=== PATIENT | female | born 1975 | race Caucasian/White ===

== ENCOUNTER 2020-04-24 16:00 | Outpatient (REF) | payer MEDICARE, MEDICAID, SELFPAY | END 2020-04-24 16:01 | disposition home or self-care (01) | LOC: HO.LAB 16:00 | PROVIDERS: PCP Internal Medicine; Visit Provider Internal Medicine | DX: Z20.828 Contact with and (suspected) exposure to other viral communicable diseases (principal) | CPT/HCPCS: C9803; U0003 ==

== ENCOUNTER 2020-07-18 15:35 | Outpatient (REF) | payer MEDICARE, MEDICAID, SELFPAY ==
--- NOTE | ~2020-07-18 | MM_ITS ---
EXAMINATION: MM SCREENING DIGITAL BREAST TOMOSYNTHESIS, BILATERAL CLINICAL INFORMATION: Screening. Asymptomatic. The lifetime risk of breast cancer based on the Tyrer-Cuzick Model is 9.1%. COMPARISON: Mammography: None TECHNIQUE: Digital breast tomosynthesis is performed in both the craniocaudal and mediolateral oblique views along with computer-aided detection (CAD). Synthesized 2D images are generated from the tomosynthesis. FINDINGS: The breasts are extremely dense, which lowers the sensitivity of mammography (ACR BI-RADS breast composition Category d). There is multiplicity and bilaterality of calcifications. RIGHT BREAST: Within the medial aspect of the right breast, there is a circumscribed approximately 2.5 x 3.1 x 3.1 cm density for which further evaluation with ultrasound is recommended. LEFT BREAST: Within the medial aspect of the left breast, there is a more prominent grouping of numerous calcifications for which craniocaudal and 90 degree mediolateral spot magnification views are recommended. MM/MM tomosynthesis screening BI IMPRESSION: Bilateral breast findings for further evaluation as described. ASSESSMENT: BI-RADS 0: Incomplete - Need Additional Imaging Evaluation RECOMMENDATION: 1. Right breast ultrasound. 2. Left breast spot magnification views in craniocaudal and 90 degree mediolateral views. This patient's information was entered into a reminder system with a target due date for their next mammogram.
== END 2020-07-18 15:36 | disposition home or self-care (01) ==
LOC: HO.MAMMO 15:35
PROVIDERS: Visit Provider Internal Medicine
DX: Z12.31 Encounter for screening mammogram for malignant neoplasm of breast (principal)
CPT/HCPCS: 77063; 77067

== ENCOUNTER 2020-07-29 10:30 | Outpatient (REF) | payer MEDICARE, MEDICAID, SELFPAY ==
--- NOTE | ~2020-07-29 | MM_ITS ---
EXAMINATION: MM DIAGNOSTIC DIGITAL MAMMOGRAPHY, LEFT US DIAGNOSTIC ULTRASOUND BREAST, RIGHT CLINICAL INFORMATION: Recall from baseline exam for left breast calcifications and contralateral right circumscribed mass. TC score 9%. No family history breast cancer. COMPARISON: Mammography: 07/18/2020 TECHNIQUE: Digital mammography is performed in the following views: Magnification CC, magnification ML. Ultrasound right breast is targeted to the inner quadrant. Grayscale imaging and color Doppler are performed without and with harmonics. FINDINGS: Left Mammography: The breasts are heterogeneously dense, which may obscure small masses (ACR BI-RADS breast composition Category c). Additional magnification views left breast demonstrate numerous heterogeneous coarse calcifications anterior 9:30 o'clock position. The calcifications vary in size, some are coarse and some are punctate. They slightly vary in shape. Stereotactic sampling is recommended. Right Ultrasound: Targeted ultrasound right breast demonstrates a simple cyst 3:00 position 2 cm from nipple measuring 3.3 x 1.8 x 2.9 cm corresponding to the finding on mammography. There is increased through-transmission of sound, circumscribed olivier, no color flow. No adjacent solid mass or architectural abnormality or duct ectasia. Results are discussed with the patient and her mother at time of visit. MM/MM added views LT IMPRESSION: 1. Left: Numerous heterogeneous coarse calcifications anterior 9:30 o'clock position. 2. Right: Incidental cyst 3:00 position corresponding to finding on baseline mammography. ASSESSMENT: BI-RADS 4: Suspicious RECOMMENDATION: Stereotactic biopsy left breast calcifications.
--- NOTE | ~2020-07-29 | US_ITS ---
The targeted right breast ultrasound is included in a single combined report with the additional views contralateral left breast same day, accession number [id number]
== END 2020-07-29 10:31 | disposition home or self-care (01) ==
LOC: HO.MAMMO 10:30
PROVIDERS: PCP Internal Medicine; Visit Provider Internal Medicine
DX: R92.1 Mammographic calcification found on diagnostic imaging of breast (principal); R92.2 Inconclusive mammogram
CPT/HCPCS: 76642; 77065

== ENCOUNTER 2020-08-14 09:34 | Outpatient (REF) | payer MEDICARE, MEDICAID, SELFPAY ==
--- NOTE | ~2020-08-14 | MM_ITS ---
EXAMINATION: STEREOTACTIC VACUUM-ASSISTED BREAST BIOPSY, LEFT SPECIMEN RADIOGRAPH, LEFT POST PROCEDURE DIGITAL MAMMOGRAM, LEFT CLINICAL INFORMATION: Heterogeneous coarse calcifications anterior 9:30 o'clock left breast. COMPARISON: Mammography 07/29/2020, 07/18/2020. TECHNIQUE/PROCEDURE: Informed consent was obtained from the patient and her mother after discussion of the benefits, risks, and alternatives to biopsy today. Patient appeared to understand. Gave opportunity for questions. Mother signed consent form. BIOPSY TABLE: [employer] Affirm Prone Biopsy System. LESION: Grouped heterogeneous coarse calcifications anterior medial left breast. LOCAL ANESTHESIA: 7 mL 1% lidocaine; 10 mL 1% lidocaine with epinephrine. DERMATOTOMY: Single skin keyon dermatotomy performed. NEEDLE: [employer] Eviva 9-gauge vacuum assisted core biopsy device. APPROACH: Mediolateral. TARGETING: Stereotactic digital mammography used for targeting. CORES: 8. CLIP: [employer] SecurMark Cylinder-shaped marker. SPECIMEN RADIOGRAPH: Specimen radiograph is taken in separate room using digital mammography. There are calcifications in all cores. Calcifications vary in size, some punctate and many coarse. POST PROCEDURE UNILATERAL DIGITAL MAMMOGRAM: The post biopsy mammogram is performed in separate room using separate digital mammography equipment from the biopsy procedure. CC x2, LM views are obtained. The breasts are extremely dense, which lowers the sensitivity of mammography (breast composition category: d). The clip marker is in position. The calcifications are decreased at the biopsy site. No gross hematoma. The patient tolerated the procedure well. No immediate complications. Home instructions reviewed with the patient. Final pathology results are pending. MM/MM stereotactic biopsy LT IMPRESSION: 1. Digital tomosynthesis-guided core biopsy left breast with clip placement. 2. Specimen radiograph taken and post procedure mammogram. There is satisfactory positioning of the biopsy clip. 3. Final pathology results pending. An addendum report will be issued.
== END 2020-08-14 09:35 | disposition home or self-care (01) ==
LOC: HO.MAMMO 09:34
PROVIDERS: Visit Provider Surgery
DX: D05.12 Intraductal carcinoma in situ of left breast (principal)
CPT/HCPCS: 19081; 88305; 88341; 88342; 88360; 99202

== ENCOUNTER → 2020-08-22 15:39 | Outpatient (BNVA) | payer MEDICARE, MEDICAID, SELFPAY | PROVIDERS: PCP Internal Medicine; Visit Provider Surgery | DX: D05.12 Intraductal carcinoma in situ of left breast (principal) | CPT/HCPCS: 99212 ==

== ENCOUNTER 2020-08-29 06:50 | Day surgery (SDC) | payer MEDICARE, MEDICAID, SELFPAY ==
--- NOTE | 2020-08-28 09:35 | HO.ANESPROP2 ---
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) Abnormality of left breast on screening mammogram (Acute) Past Medical History Medical History (Updated 08/29/20 @ 08:12 by Evy Friedman) Degenerative disc disease Dysarthria Lead poisoning Family History Family History Paternal Grandfather History of lung cancer Maternal Grandfather History of lung cancer Surgical History Surgical History H/O myringotomy Social History Social History Alcohol intake: never Smoking Status: Never smoker Use of substances other than those prescribed or required for medical reasons: No Have you been hit, kicked, punched, or otherwise hurt by someone within the past year? If so, by whom?: No Advance Directives: No Advance Directives Information Provided: Yes Meds Allergies Allergy/AdvReac Type Severity Reaction Status Date / Time No Known Allergies Allergy Verified 08/29/20 07:03 N.K.D.A. Allergy Unknown NKA Uncoded 08/29/20 07:03 Exam Exam Date and Time: August 28, 2020 0935 Assessment and Plan Assessment Anesthesia Assessment: Chart Reviewed Documented by User: Evy Friedman 08/29/20 08:20 PMFSH Past Medical History Medical History (Updated 08/29/20 @ 08:12 by Evy Friedman) Degenerative disc disease Dysarthria Lead poisoning Family History Family History Paternal Grandfather History of lung cancer Maternal Grandfather History of lung cancer Family history of problems with anesthesia: No Surgical History Surgical History H/O myringotomy History of Problems with Anesthesia: No Social History Social History Alcohol intake: never Smoking Status: Never smoker Use of substances other than those prescribed or required for medical reasons: No Have you been hit, kicked, punched, or otherwise hurt by someone within the past year? If so, by whom?: No Advance Directives: No Advance Directives Information Provided: Yes Meds Allergies Allergy/AdvReac Type Severity Reaction Status Date / Time No Known Allergies Allergy Verified 08/29/20 07:03 N.K.D.A. Allergy Unknown NKA Uncoded 08/29/20 07:03 Exam Height,Weight and Vital Signs: Vital Signs Temp Pulse Resp BP Pulse Ox 08/29/20 07:14 97.9 F 78 18 119/74 99 Narrative Narrative: Patient unable to give urine for test. Denies any possibility of . Ok to proceed without. Airway Mallampati Class: III (Small mouth opening) TM Dist: >3cm Neck ROM: Full Heart: RRR Lungs: CTAB Assessment and Plan Assessment Anesthesia Assessment: Anesthesia Plan Discussed and Chart Reviewed Final Anesthetic Review NPO: Yes ASA Class: II Final Preanesthetic Review: No Changes in Pt Med Stat, Meds/Allgs Chart Reviewed, Consent Obtained/Reviewed and Anes Risks/Benef Reviewed Patient Risk: Low Procedure Risk: Low Assessment/Block/Sedation in SS: Assess/Block/Sedation-SS Anesthetic Plan Anesthetic Plan: GA Disposition: Standard PACU
[2020-08-29] VITALS (10 sets, daily range): BP systolic 111–141; BP diastolic 63–89; PULSE 78–115; RESP 16–22; TEMP 36.2–36.7; O2SAT 90–99; BMI 25.4
--- NOTE | ~2020-08-29 | MM_ITS ---
EXAMINATION: MM MAMMOGRAM GUIDED NEEDLE LOCALIZATION BREAST, LEFT MM NEEDLE LOCALIZATION SPECIMEN FROM THE LEFT BREAST CLINICAL INFORMATION: Recent diagnosis ductal carcinoma in situ medial left breast. COMPARISON: Mammography 07/18/2020, 07/29/2020, 08/14/2020. TECHNIQUE NEEDLE LOC: Proper informed consent is obtained from the patient and her mother after discussion of the procedure, potential risks and complications, and alternatives including declining the procedure today. Patient was given an opportunity for questions. The patient appeared to understand. The patient and her mother consented to the procedure. Mother signed consent form. GUIDANCE: Digital mammography. APPROACH: Mediolateral. TARGET: Biopsy clip marker and heterogeneous coarse calcifications medial left breast. Plan to bracket area with 2 localization markers. ANESTHESIA: lidocaine 1%: 8 mL (divided between 2 localization sites). LOCALIZATION MARKER: [employer], 2 needles, each 7.5 cm length. The skin is prepped and local anesthesia administered. The needles are positioned and positioning assessed with mammography. The wires are hooked into position. Tovey needle protector placed. The patient tolerated the procedure well and had no immediate complication. Procedure results called to medical surgical tech (Marcela) for Dr. Hernandez. TECHNIQUE SPECIMEN RADIOGRAPH: Imaging of the excised specimen is performed using digital mammography in 1 view. FINDINGS SPECIMEN RADIOGRAPH: The specimen shows one of the localization needles and wire to be intact and in the specimen. The other needle has been removed and the distal wire fragment and a sectioned needle overlying the specimen. The biopsy clip marker is in the specimen along with the group heterogenous coarse calcifications. There are other scattered calcifications within the specimen as well. Results were called to Dr. Hemal Hernandez in the operating room at the time of imaging. MM/MM needle loc LT IMPRESSION: 1. Status post left breast needle localization with wire hooked into position. 2. Post operative specimen radiograph obtained.
[2020-08-29] MEDS: Lactated Ringers 1,000 ML 100 ML IVCONT (07:47)
--- NOTE | 2020-08-29 08:18 | PC.NURSE ---
PATIENT IS A SPECIAL NEEDS PATIENT (mom at bedside and is the HCP). PT HAD ALREADY URINATED JUSSST BEFORE COMING INTO THE PREP AREA. PT WAS ASKED TO TRY AND GET A UIRINE SAMPLE FOR A URINE PREG TEST AND ATTEMPTED TO DO SO UNSUCCESSFULLY. DR. RASHEED SIEGEL AWARE AND SPOKE WITH PATIENT'S MOM. ORDER DISCONTINUED PER DR. Camilo SIEGEL.
--- NOTE | 2020-08-29 08:31 | PC.NURSE ---
PATIENT OFF UNIT AT THIS TIME FOR NEEDLE LOC.
--- NOTE | 2020-08-29 08:39 | MHC.SHP ---
Pre-Procedural Eval Section A The patient is an INPATIENT: No Changes since office visit: Yes Patient answered all questions; No Cold of Flu in the past 2 weeks, No New Medical Problems and No Changes in Medication The History & Physical has been completed within 30 days and I have reviewed it.: Yes Section B Chief Complaint: Ductal carcinoma in situ of left breast Allergies: Allergies Allergy/AdvReac Type Severity Reaction Status Date / Time No Known Allergies Allergy Verified 08/29/20 07:03 N.K.D.A. Allergy Unknown NKA Uncoded 08/29/20 07:03 Plan Diagnosis/Plan: Unchanged I have reviewed the history and physical and performed a pertinent physical examination on my patient. No changes have occurred unless specified.
--- NOTE | 2020-08-29 09:25 | PC.NURSE ---
PATIENT BACK IN [facility]. DR. DOWNS AT BEDSIDE OBTAINING CONSENT.
--- NOTE | 2020-08-29 09:33 | W.PM.OPN ---
Operative Note Operative Note Date of Service: 08/29/20 Narrative: Preoperative diagnosis: Ductal carcinoma in situ left breast Postoperative diagnosis: Same Procedure: Left breast lumpectomy with needle localization Surgeon: Hemal Hernandez MD Marketing Account Executive: Ana Cristina Mckeon PA-C Anesthesia: General LMA Indications for procedure: 45-year-old female patient presenting with a recent screening mammogram which revealed an area microcalcifications over wide area in the left breast felt to be suspicious for malignancy. She underwent stereotactic guided core biopsy which revealed ductal carcinoma in situ. She presents today for lumpectomy with needle localization Operative findings: Lesion in the 9 o'clock location confirmed on specimen x-ray. Specimen: Left breast lumpectomy Estimated blood loss: 20 mL Procedure details: Patient was brought to the OR and placed in a supine position. After administering general anesthesia, the left breast was prepped with ChloraPrep draped in a sterile fashion. A surgical time-out was called and the consent confirmed. Preoperative antibiotics were administered and the dye boots were in place. Local anesthesia consisting of 0.25% Sensorcaine with epinephrine was then infiltrated around the localizing needles. A radial incision was made in the 9 o'clock location adjacent to the two localizing needles and carried out through subcutaneous tissue. Superior and inferior skin flaps were then created. A core of tissue surrounding the needle was then dissected using a combination of sharp and electrocautery dissection. Every attempt was made to dissect wide of the localizing wires to assure complete removal of the specimen. The specimen was then marked with a long suture on the lateral margin, short suture on the superior margin and a loop suture in the deep margin. Specimen was sent to Radiology department for specimen x-ray followed by gross pathology. An additional margin of the anterior superior margin was obtained and sent as a separate specimen. After assuring complete removal of the specimen, the wounds were checked for hemostasis. Wounds were irrigated with saline and suctioned dry. Deep breast tissue was then reapproximated using interrupted 3-0 Polysorb sutures. Dermis was reapproximated using interrupted 3-0 Polysorb sutures. Skin was then closed using a running subcuticular 4-0 Polysorb suture. Steri-Strips 2 x 2 gauze and Tegaderm were then applied. The patient tolerated the procedure well. Sponge, instrument, and needle counts reported as correct. The patient was transferred to PACU in stable condition.
--- NOTE | 2020-08-29 11:50 | PM.OP ---
Brief Operative Note Date of Service: 08/29/20 <DINORAH Jane Last Filed: 08/29/20 11:52> Pre-op diagnosis: DCIS of left breast <DINORAH Jane Last Filed: 08/29/20 11:52> Post-op diagnosis: same <DINORAH Jane Last Filed: 08/29/20 11:52> Procedure: left breast lumpectomy with needle localization <DINORAH Jane Last Filed: 08/29/20 11:52> Surgeon: EDY DOWNS MD <DINORAH Jane Last Filed: 08/29/20 11:52> Anesthesia: GLMA <DINORAH Jane Last Filed: 08/29/20 11:52> Perforator Loader: Ana Cristina Mckeon <DINORAH Jane Last Filed: 08/29/20 11:52> Estimated blood loss (mL): 15 <DINORAH Jane Last Filed: 08/29/20 11:52> Pathology: other (LEFT breast lumpectomy; anterior/superior margin) <DINORAH Jane Last Filed: 08/29/20 11:52> Condition: stable <DINORAH Jane Last Filed: 08/29/20 11:52> Disposition: PACU <DINORAH Jane Last Filed: 08/29/20 11:52>
== END 2020-08-29 14:55 | disposition home or self-care (01) ==
PROVIDERS: PCP Internal Medicine; Visit Provider Surgery
PROC: (CPT 19301; principal; 2020-08-29 09:00)
PROC: (CPT 19301; 2020-08-29 09:00)
DX: D05.12 Intraductal carcinoma in situ of left breast (principal); Z17.0 Estrogen receptor positive status [ER+]; M51.36 Other intervertebral disc degeneration, lumbar region; R47.1 Dysarthria and anarthria; Z77.011 Contact with and (suspected) exposure to lead
CPT/HCPCS: 19301; 19281; 88307; 88329; 88341; 88342; A4648; J0690; J1100; J2250; J2405; J3010

== ENCOUNTER → 2020-09-06 10:40 | Outpatient (BNVA) | payer MEDICARE, MEDICAID, SELFPAY | PROVIDERS: PCP Internal Medicine; Visit Provider Surgery | DX: Z48.3 Aftercare following surgery for neoplasm (principal); D05.12 Intraductal carcinoma in situ of left breast | CPT/HCPCS: 99212 ==

== ENCOUNTER → 2020-10-01 11:43 | Outpatient (BNVA) | payer MEDICARE, MEDICAID, SELFPAY | PROVIDERS: PCP Internal Medicine; Visit Provider Surgery | DX: D05.12 Intraductal carcinoma in situ of left breast (principal) | CPT/HCPCS: 99212 ==

== ENCOUNTER → 2021-01-09 13:47 | Outpatient (BNVA) | payer MEDICARE, MEDICAID, SELFPAY | PROVIDERS: PCP Internal Medicine; Referring Provider Internal Medicine; Visit Provider Surgery | DX: D05.12 Intraductal carcinoma in situ of left breast (principal); Z79.810 Long term (current) use of selective estrogen receptor modulators (SERMs) | CPT/HCPCS: 99212 ==

== ENCOUNTER → 2021-02-10 14:17 | Outpatient (BNVA) | payer MEDICARE, MEDICAID, SELFPAY | PROVIDERS: PCP Internal Medicine; Referring Provider Internal Medicine; Visit Provider Advanced Practice Midwife ==

== ENCOUNTER → 2021-03-28 11:50 | Outpatient (BNVA) | payer OTHER, SELFPAY | PROVIDERS: PCP Internal Medicine; Visit Provider Internal Medicine | DX: M25.562 Pain in left knee (principal); Z91.81 History of falling | CPT/HCPCS: 73562; 99203 ==

== ENCOUNTER → 2021-03-31 11:19 | Outpatient (BNVA) | payer OTHER, SELFPAY | PROVIDERS: PCP Internal Medicine; Visit Provider Internal Medicine | DX: S80.212A Abrasion, left knee, initial encounter (principal); W18.30XA Fall on same level, unspecified, initial encounter | CPT/HCPCS: 99213 ==

== ENCOUNTER → 2021-04-08 14:28 | Outpatient (BNVA) | payer MEDICARE, MEDICAID, SELFPAY | PROVIDERS: PCP Internal Medicine; Referring Provider Internal Medicine; Visit Provider Surgery | DX: D05.12 Intraductal carcinoma in situ of left breast (principal) | CPT/HCPCS: 99212 ==

== ENCOUNTER 2021-04-23 13:28 | Outpatient (REF) | payer MEDICARE, MEDICAID, SELFPAY ==
--- NOTE | ~2021-04-23 | MM_ITS ---
EXAMINATION: MM DIAGNOSTIC DIGITAL BREAST TOMOSYNTHESIS, BILATERAL CLINICAL INFORMATION: Intraductal carcinoma in situ of left breast. COMPARISON: Mammography: August 29, 2020 and studies dating back to July 18, 2020 TECHNIQUE: Digital breast tomosynthesis is performed in both the craniocaudal and mediolateral oblique views along with computer-aided detection (CAD). Synthesized 2-D images are generated from the tomosynthesis. FINDINGS: The breasts are extremely dense, which lowers the sensitivity of mammography (ACR BI-RADS breast composition Category d). Right Breast: Numerous calcifications are seen within the right breast some of which appear to be increasing in number and, therefore, magnification views were performed. There is a grouping of increasing indeterminate calcifications about the superior and slightly medial aspect of the right breast 7 cm from the nipple, for which stereotactic core biopsy is recommended. There is also a second region of indeterminate calcifications not definitely seen on prior study just lateral to midline approximately 6 cm from the nipple, which by tomosynthesis should lie in the inferior aspect of the left breast where on mediolateral oblique tomosynthesis view, some calcifications are seen that were not definitely noted on prior study, however, magnification 90-degree film did not include that region at time of study as I am now reviewing the study after the patient has left. There are innumerable groupings and scattered calcifications present within the right breast making it difficult to separate out the differing groups, however, with the positioning of these groupings of calcifications, I feel stereotactic core biopsy could be performed targeting on these 2 groups. Left Breast: Since the previous study, the patient is status post lumpectomy. Within the postsurgical bed, some calcifications are seen, however, these appear to have been distant to the original grouping of calcifications which were removed. There is some architectural distortion related to the surgery. No new more suspicious calcifications or abnormal dominant mass is appreciated. The recommendation for stereotactic core biopsies of the right breast were discussed with the patient and her mother by me at time of study. Breast center navigator called referring provider's office with the above recommendation. MM/MM tomosynthesis diagnostic BI IMPRESSION: Increasing indeterminate calcifications within the right breast for which stereotactic core biopsy of 2 locations is recommended. ASSESSMENT: BI-RADS 4: Suspicious. RECOMMENDATION: Stereotactic core biopsy of the right breast.
== END 2021-04-23 13:29 | disposition home or self-care (01) ==
LOC: HO.MAMMO 13:28
PROVIDERS: Visit Provider Surgery
DX: D05.12 Intraductal carcinoma in situ of left breast (principal)
CPT/HCPCS: 77062; 77066

== ENCOUNTER 2021-05-06 09:09 | Outpatient (REF) | payer MEDICARE, MEDICAID, SELFPAY | END 2021-05-06 09:10 | disposition home or self-care (01) | LOC: HO.MAMMO 09:09 | PROVIDERS: Visit Provider Surgery | DX: R92.8 Other abnormal and inconclusive findings on diagnostic imaging of breast (principal) | CPT/HCPCS: 99212 ==

== ENCOUNTER 2021-05-14 10:13 | Outpatient (REF) | payer MEDICARE, MEDICAID, SELFPAY ==
--- NOTE | ~2021-05-14 | MM_ITS ---
PROCEDURE: MM STEREOTACTIC TOMOSYNTHESIS-GUIDED VACUUM-ASSISTED BREAST BIOPSY, RIGHT XR SPECIMEN, RIGHT MM POST PROCEDURE DIGITAL, RIGHT CLINICAL INFORMATION: Indeterminate calcifications deep upper inner aspect of the right breast. Previous history of left breast cancer. COMPARISON: 04/23/2021 and studies dating back to 07/18/2020. TECHNIQUE/PROCEDURE: Informed consent was obtained from the patient after discussion of the benefits, risks, and alternatives to biopsy today. Patient appeared to understand. Gave opportunity for questions. Patient signed consent form. BIOPSY TABLE: [employer] Affirm Prone Biopsy System. LESION: Indeterminate calcifications, right breast. LOCAL ANESTHESIA: 10 mL 1% lidocaine; 20 mL 1% lidocaine with epinephrine. DERMATOTOMY: Single skin keyon dermatotomy performed. NEEDLE: [employer] 9-gauge vacuum assisted core biopsy device. APPROACH: Craniocaudal. TARGETING: Combination of digital breast tomosynthesis and stereotactic digital mammography used for targeting. At initial targeting, numerous samples were obtained with first specimen radiograph only demonstrating 1 calcification within the samples. It is noted that the grouping of calcifications appear to be displaced laterally by a few millimeters from the needle placement in this patient with very dense breast parenchyma as well as some movement while giving lidocaine. The needle was then jogged laterally by a few millimeters and sampling again performed. At this time, tomosynthesis and 2-D views were obtained with re-targeting on calcifications again performed. A third group of samples were obtained in this new position approximately 1.5 cm deep to the initial samplings. CORES: 36. CLIP: [employer] T-shaped marker. SPECIMEN RADIOGRAPH: Specimen radiograph is taken in separate room using digital mammography. A few calcifications are present within the samples, however, the majority of the targeted calcifications remained within the breast. POST PROCEDURE UNILATERAL DIGITAL MAMMOGRAM: The post biopsy mammogram is performed in separate room using separate digital mammography equipment from the biopsy procedure. 2 views are obtained. The breasts are extremely dense, which lowers the sensitivity of mammography (breast composition category: d). The clip marker appears. The patient tolerated the procedure well. No immediate complications. Home instructions reviewed with the patient and her mother. Final pathology results are pending. MM/MM stereotactic biopsy RT IMPRESSION: 1. Digital tomosynthesis-guided core biopsy right breast with clip placement. 2. Specimen radiograph taken and post procedure mammogram. The clip is noted to lie approximately 1.5 cm deep to the targeted grouping of calcifications. However, the needle had been positioned approximately 1.5 cm deep to the calcifications during the study on the third round of biopsy samples. I cannot be sure that there was adequate sampling of the targeted location. If pathology results demonstrate benign tissue, I would recommend repeat sampling of the calcifications which stereotactic guidance. If the pathology of the specimen demonstrates atypia or malignancy, then surgery could be performed at that time. The above was discussed with Dr. Hernandez, the patient, and the patient's mother. 3. Final pathology results pending. An addendum report will be issued.
[2021-05-14] MEDS: Sodium Bicarbonate 8.4% 50 MEQ/50 ML VIAL SUBCUT (12:34)
== END 2021-05-14 10:14 | disposition home or self-care (01) ==
LOC: HO.MAMMO 10:13
PROVIDERS: Visit Provider Surgery
DX: R92.8 Other abnormal and inconclusive findings on diagnostic imaging of breast (principal)
CPT/HCPCS: 19081; 88305; 88341; 88342; A4648

== ENCOUNTER → 2021-05-20 13:49 | Outpatient (BNVA) | payer MEDICARE, MEDICAID, SELFPAY | PROVIDERS: PCP Internal Medicine; Referring Provider Internal Medicine; Visit Provider Surgery | DX: N60.91 Unspecified benign mammary dysplasia of right breast (principal); D05.12 Intraductal carcinoma in situ of left breast | CPT/HCPCS: 99212 ==

== ENCOUNTER 2021-10-01 14:00 | Outpatient (RCR) | payer MEDICARE, MEDICAID, SELFPAY ==
--- NOTE | 2021-09-11 16:11 | MHC.PT.EP ---
[facility] [place] Office [place] Office [place] Office [address] Hernandez [place] [address] [phone] F: [phone] F: [phone] F: [phone] F: [phone] Physical Therapy Plan of Care Date of Evaluation: Date of Surgery: Diagnosis: Dorsalgia Assessment: Pt is a pleasant 46yo F who presents to PT with mid back pain. She has had recent injections with some relief. She presents to PT today with current impairments in pain, decreased thoracic and lumbar ROM, soft tissue restrictions, and impaired posture. She is TTP throughout thoracic spine and R thoracic and lumbar PS. She is limited functionally by prolonged sitting, prolonged standing, walking, and sleeping. She is a good candidate for skilled PT in order to address current impairments in order to faciltiate return to PLOF. She will be seen for PT 2x/week for 4 weeks and will be reassessed at that time. Frequency and Duration: The patient will be seen 2x/week for 4 weeks Short Term Goals: Pt will perform HEP regularly with assist as needed to promote self management of symptoms Pt will demonstrate improvements in postural awareness and body mechanics Deliverer Food Goals: Pt will tolerate standing > 1 hour with minimal to no pain in her back to assist with standing functional tasks Pt will tolerate sitting > 30 min with minimal to no pain Pt will demonstrate improvements in function as evidenced by statistically significant improvement in Modified Oswestry Low Back Pain Disability Questionnaire Treatment Plan: Modalities to reduce pain, spasms and effusion. Manual therapy to restore motion and function. Therapeutic exercise to improve strength and flexibility. Neuromuscular re-education for posture and balance. Therapeutic activities to return to functional activities of daily living. Electronically signed by: Michelle Dietz PT, DPT Please sign and return to therapist. Thank you for your referral.
--- NOTE | 2021-10-14 11:21 | MHC.PT.DC ---
[facility] [place] Office [place] Office [place] Office [address] Hernandez Vallecillo [address] [phone] F: [phone] F: [phone] F: [phone] F: [phone] Physical Therapy Discharge Report Diagnosis: Dorsalgia Date of Surgery: Date of Evaluation: 09/11/21 Date of Discharge: 10/14/21 Treatments to Date: 4 Cancellations to Date: 1 No Shows to Date: 0 Discharge Status: Patient Elected to Stop Discharge Summary: Pt was seen for PT from 09/01/21-09/24/21. Her last attended appointment was 09/24/21. Per her last PT treatment note on 09/24/21, pt reported improvement in symptoms with stretches performed during session. Pts mother called on 10/03/21 to D/C pt from PT per reports of increased pain. Pt is being D/C from PT at this time. Pt current level of function unknown. Electronically signed by: Michelle Dietz, PT, DPT Please sign and return to therapist. Thank you for your referral.
== END 2021-10-14 11:22 | disposition home or self-care (01) ==
LOC: HO.PT 14:00
PROVIDERS: PCP Internal Medicine; Visit Provider Internal Medicine
DX: M54.9 Dorsalgia, unspecified (principal)
CPT/HCPCS: 97110; 97162

== ENCOUNTER 2021-10-02 10:26 | Outpatient (REF) | payer MEDICARE, MEDICAID, SELFPAY ==
[2021-10-02 11:15] LABS: MANUAL DIFF FLAG NO
[2021-10-02 11:26] LABS: Basophils Percent Auto 0.6 % (0-2); Eosinophils Absolute Auto 0.2 X10*3/uL (0.0-0.4); Eosinophils Percent Auto 2.5 % (0-4); Hematocrit 41.4 % (37.0-47.0); Hemoglobin 13.4 g/dl (12.0-16.0); Imm Gran Abs Auto 0.02 X10*3/uL (0.00-0.03); Imm Gran Pct Auto 0.3 % (0.0-0.4); Lymphocytes Absolute Auto 2.4 X10*3/uL (1.2-4.9); Lymphocytes Percent Auto 36.3 % (20-40); Mean Corpuscular HGB Conc 32.4 g/dl (31.0-35.0); Mean Corpuscular Hemoglobin 28.2 pg (27.0-33.0); Mean Platelet Volume 11.1 fL (9.4-12.3); Monocytes Absolute Auto 0.4 X10*3/uL (0.1-1.2); Monocytes Percent Auto 6.1 % (2-11); Neutrophils Absolute Auto 3.5 x10*3/uL (2.0-8.3); Neutrophils Percent Auto 54.2 % (45-73); Platelet Count 287 X10*3/uL (160-400); Red Blood Count 4.76 X10*6/uL (4.20-5.50); Red Cell Distribution Width 13.1 % (11.0-16.0); White Blood Count 6.5 X10*3/uL (4.8-10.8)
[2021-10-02 12:09] LABS: Alanine Aminotransferase 12 U/L (0-31); Alkaline Phosphatase 60 U/L (39-117); Anion Gap 12 (12-20); Aspartate Amino Transferase 18 U/L (5-31); Bilirubin Total 0.8 mg/dL (0.0-1.0); Blood Urea Nitrogen 16 mg/dL (9-16); Carbon Dioxide 27 mmol/L (22-29); Cholesterol 185 mg/dL; Estimated Glomerular Filt Rate > 60; HDL Cholesterol 44 mg/dL
[2021-10-02 12:16] LABS: TSH reflex Free T4 2.18 uIU/mL (0.32-4.0)
[2021-10-02 12:41] LABS: Albumin Level 4.3 g/dL (3.5-5.0); Calcium 9.4 mg/dL (8.4-10.2); Chloride 105 mmol/L (96-108); Glucose Fasting 86 mg/dL (60-99); LDL Cholesterol Calculated 119 mg/dl; Potassium 4.8 mmol/L (3.3-5.1); Sodium 139 mmol/L (135-145); Total Protein 7.8 g/dL (6.5-8.0); Triglycerides 112 mg/dL
== END 2021-10-02 10:27 | disposition home or self-care (01) ==
LOC: HO.HMGCLDS 10:26
PROVIDERS: Visit Provider Internal Medicine
DX: Z00.01 Encounter for general adult medical examination with abnormal findings (principal); F79 Unspecified intellectual disabilities; Z85.3 Personal history of malignant neoplasm of breast
CPT/HCPCS: 36415; 80053; 80061; 84443; 85025

== ENCOUNTER 2022-07-08 15:47 | Outpatient (REF) | payer MEDICARE, MEDICAID, SELFPAY ==
--- NOTE | ~2022-07-08 | XR_ITS ---
EXAMINATION: XR TOES, RIGHT CLINICAL INFORMATION: Pain COMPARISON: None TECHNIQUE: 3 views of the right toes were obtained. FINDINGS: Somewhat flexed positioning of the fourth digit limits evaluation. No definite fractures are seen. Alignment is grossly maintained. The soft tissues are unremarkable. No definite osseous erosion. XR/XR toe RT min 2V IMPRESSION: Somewhat flexed positioning of the fourth digit limits evaluation. No definite fracture or malalignment. No osseous erosion.
== END 2022-07-08 15:48 | disposition home or self-care (01) ==
LOC: HO.HMGCX 15:47
PROVIDERS: PCP Internal Medicine; Visit Provider Internal Medicine
DX: M79.674 Pain in right toe(s) (principal)
CPT/HCPCS: 73660

== ENCOUNTER 2023-04-12 08:29 | Outpatient (AMB) | payer MEDICARE, MEDICAID, SELFPAY ==
[2023-04-12 09:09] VITALS: BP 120/82; PULSE 113; TEMP 36.7; O2SAT 97; BMI 23.5
--- NOTE | 2023-04-12 09:09 | AM.OFFWIN_ITS ---
Intake Vital Signs 04/12/23 09:09 Height 6 ft Weight 173 lb 2 oz BMI 23.5 BP 120/82 Blood Pressure Location Lt brachial Position Sitting Pulse 113 H Pulse Source Pulse Oximeter Temp 98.0 F Temp Source Oral Pulse Oximetry (%) 97 Oxygen Delivery Method Room Air Intake Visit Reasons: EP, sore throayt, cough (masked) Intake Note: Pt presents to the office today for c/o sore throat, cough, and congestion.Pts mother states she had lymph node surgery 6 weeks ago in her right arm as well. Patient Tobacco Use Status: Never used Tobacco Accompanied by: Mother Allergies N.K.D.A. Allergy (Unknown, Uncoded 04/12/23 09:13) NKA Medication List - Last Reconciled 04/12/23 by Karan Aldrich MD ascorbic acid (vitamin C) ER 1 cap PO DAILY ibuprofen 200 mg (10 mL) PO .3 times daily PRN multivitamin 1 tab PO DAILY HPI EP, sore throayt, cough (masked) HPI Details 47-year-old female presents to the offic e for a sick visit. She is accompanied on this visit with her mother. Mom is speaking on behalf of the patient due to her learning disabilities. He reports symptoms of cough, sore throat, nausea and vomiting. [facility] Medical History Ductal carcinoma in situ of left breast Degenerative disc disease Lead poisoning Dysarthria Surgical History History of lumpectomy of left breast H/O myringotomy Family History Paternal Grandfather History of lung cancer Maternal Grandfather History of lung cancer Maternal Uncle Heart attack Maternal Grandmother Heart attack Diabetes HTN (hypertension) Father COPD (chronic obstructive pulmonary disease) Parkinson disease Maternal Aunt Diabetes Paternal Grandmother Diabetes Paternal Aunt Diabetes Social History Household Members: Family Household Members Other:: mother Housing: House Are you a primary critical care transport nurse to a significant other at home: No Do you presently have visiting nurse or other home services: No Alcohol intake: never Patient Tobacco Use Status: Never used Tobacco e-Cigarette/Vaping Use: Never Used service: No Current occupational status: employed 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 Cognitive needs: Yes Hearing needs: No Vision needs: No Physical Exam Vital Signs: Last Vital Signs Temp 98.0 F 04/12/23 09:09 Pulse 113 H 04/12/23 09:09 BP 120/82 04/12/23 09:09 Pulse Ox 97 04/12/23 09:09 Oxygen Delivery Method Room Air 04/12/23 09:09 BMI result Body Mass Index 23.5 Const General: cooperative and healthy appearing Nutritional Appearance: well nourished Orientation/consciousness: patient oriented x3 Limitations: no limitations HEENT Head: Yes normal to inspection Eyes General: appearance normal, both eyes and all related structures Neck Neck: Yes normal visual inspection Chest Chest palpation & inspection: normal palpation of entire chest wall Resp Effort & Inspection: normal respiratory effort Neuro General: patient oriented x3 Results AMB Rapid Strep AMB Rapid Strep Negative Last Edit by Jordana Gaming MA on 04/12/23 09:28 Results Reviewed Results Reviewed: Laboratory Last Values Strep Scn Rapid Clinic Negative 04/12/23 09:27 Assessment & Plan Assessment & Plan (1) Upper respiratory tract infection: Code(s): J06.9 - Acute upper respiratory infection, unspecified Plan: Antibiotics ordered. Increase fluid intake. Tylenol for aches and pains. If symptoms worsen, follow-up here for a recheck. Orders: Orders AMB Rapid Strep Screen Today Z13.9 - Encounter for screening, unspecified Coding Level of Care Code Est Pt Level 3 (44062) Diagnoses Upper respiratory tract infection J06.9
== END 2023-04-12 10:12 | disposition home or self-care (01) ==
PROVIDERS: PCP Internal Medicine; Visit Provider Internal Medicine
DX: J06.9 Acute upper respiratory infection, unspecified (principal); Z13.9 Encounter for screening, unspecified
CPT/HCPCS: 87880; 99213

== ENCOUNTER 2023-09-27 15:11 | Outpatient (AMB) | payer MEDICARE, MEDICAID, SELFPAY ==
[2023-09-27 15:17] VITALS: BP 120/78; PULSE 102; TEMP 36.6; O2SAT 97
--- NOTE | 2023-09-27 15:17 | AM.OFFWIN_ITS ---
Intake Vital Signs 09/27/23 15:17 Height 6 ft BP 120/78 Blood Pressure Location Lt brachial Position Sitting Pulse 102 H Pulse Source Pulse Oximeter Temp 97.8 F Temp Source Oral Pulse Oximetry (%) 97 Oxygen Delivery Method Room Air Intake Visit Reasons: EP nose bleeds ENT Intake Note: pt is here for c/o nose bleed ongoing a few weeks, on and off. patient states she just has double mastectomy due to breast cancer Patient Tobacco Use Status: Never used Tobacco Allergies No Known Allergies Allergy (Verified 09/27/23 15:18) Do you need a note to return to daycare/school/sports/work: Yes HPI HPI Comments History of Present Illness Details 48 y/o female patient who presents to [facility] in clinic with c/o nose bleeds. Reports symptoms on/off for the past 3 weeks. Pt has intellectual disability , today accompanied by mother who provide History. S/P Breast Cancer, currently taking Anastrozole drug for Chemo.She started the drug back in 03/2023. She is being managed by [facility]. [facility], [facility] Medical History Ductal carcinoma in situ of left breast Degenerative disc disease Lead poisoning Dysarthria Surgical History History of lumpectomy of left breast H/O myringotomy Family History Paternal Grandfather History of lung cancer Maternal Grandfather History of lung cancer Maternal Uncle Heart attack Maternal Grandmother Heart attack Diabetes HTN (hypertension) Father COPD (chronic obstructive pulmonary disease) Parkinson disease Maternal Aunt Diabetes Paternal Grandmother Diabetes Paternal Aunt Diabetes Social History Household Members: Family Household Members Other:: mother Housing: House Are you a primary customer care assistant to a significant other at home: No Do you presently have visiting nurse or other home services: No Alcohol intake: never Patient Tobacco Use Status: Never used Tobacco e-Cigarette/Vaping Use: Never Used service: No Current occupational status: employed 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 Cognitive needs: Yes Hearing needs: No Vision needs: No Review of Systems Const All systems reviewed & are unremarkable except as noted in HPI and below Physical Exam Vital Signs: Last Vital Signs Temp 97.8 F 09/27/23 15:17 Pulse 102 H 09/27/23 15:17 BP 120/78 09/27/23 15:17 Pulse Ox 97 09/27/23 15:17 Oxygen Delivery Method Room Air 09/27/23 15:17 Const General: comfortable and no acute distress Orientation/consciousness: patient oriented x3 Limitations: behavioral limitations HEENT Head: Yes normocephalic Ears: external ears normal and TM's normal bilaterally General nose exam: Normal external nose present, Abnormal mucous membranes and turbinates present boggy on the right and erythematous on the right and Epistaxis present on the right dried blood present and active bleeding Face and sinus: Yes sinuses nontender Mouth: moist mucous membranes Throat: Yes posterior oropharynx normal and Yes uvula midline Neuro General: patient oriented x3, gait normal and moves all extremities Psych Speech and movement: Slowed speech present (Psych) Affect: normal affect Assessment & Plan Assessment & Plan (1) Epistaxis: Code(s): R04.0 - Epistaxis Plan: - Afrin as directed - Nasal Tampons soaked in Afrin for 20 minutes - Ice or frozen peas on nasal bridge. - F/U with [facility] regarding this new onset of symptoms. ???< 1% Anastrazole could cause nose bleeds. Medications: New oxymetazoline 0.05% (Afrin (oxymetazoline)) 2 sprays intranasal Q12H 3 days PRN 22 mL 0RF nasal congestion R04.0 - Epistaxis Coding Level of Care Code Est Pt Level 3 (77626) Diagnoses Epistaxis R04.0 Time Spent (min) 15
== END 2023-09-27 15:48 | disposition home or self-care (01) ==
PROVIDERS: PCP Internal Medicine; Visit Provider Nurse Practitioner Family
DX: R04.0 Epistaxis (principal)
CPT/HCPCS: 99213

== ENCOUNTER 2023-11-11 12:14 | Outpatient (AMB) | payer MEDICARE, MEDICAID, SELFPAY ==
[2023-11-11 12:59] VITALS: BP 110/70; PULSE 96; TEMP 36.3; O2SAT 99; BMI 24.7
--- NOTE | 2023-11-11 12:59 | AM.OFFWIN_ITS ---
Intake Vital Signs 11/11/23 12:59 Height 6 ft Weight 182 lb BMI 24.7 BP 110/70 Blood Pressure Location Lt brachial Position Sitting Pulse 96 Pulse Source Pulse Oximeter Temp 97.3 F Temp Source Temporal Artery Scan Pulse Oximetry (%) 99 Oxygen Delivery Method Room Air Intake Visit Reasons: EST/ ongoing cough (lobby masked) Intake Note: pt is here today for ongoing cough started 15 days ago Patient Tobacco Use Status: Never used Tobacco Allergies No Known Allergies Allergy (Verified 11/11/23 13:11) Do you need a note to return to daycare/school/sports/work: Yes HPI HPI Comments History of Present Illness Details 48 y/o female patient who presents to [facility] in clinic with c/o persistent cough for 15 days. She has been using OTC cough remedies with no relief. [facility] Medical History Ductal carcinoma in situ of left breast Degenerative disc disease Lead poisoning Dysarthria Surgical History History of lumpectomy of left breast H/O myringotomy Family History Paternal Grandfather History of lung cancer Maternal Grandfather History of lung cancer Maternal Uncle Heart attack Maternal Grandmother Heart attack Diabetes HTN (hypertension) Father COPD (chronic obstructive pulmonary disease) Parkinson disease Maternal Aunt Diabetes Paternal Grandmother Diabetes Paternal Aunt Diabetes Social History Household Members: Family Household Members Other:: mother Housing: House Are you a primary daycare director to a significant other at home: No Do you presently have visiting nurse or other home services: No Alcohol intake: never Patient Tobacco Use Status: Never used Tobacco e-Cigarette/Vaping Use: Never Used service: No Current occupational status: employed 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 Cognitive needs: Yes Hearing needs: No Vision needs: No Review of Systems Const All systems reviewed & are unremarkable except as noted in HPI and below Physical Exam Vital Signs: Last Vital Signs Temp 97.3 F 11/11/23 12:59 Pulse 96 11/11/23 12:59 BP 110/70 11/11/23 12:59 Pulse Ox 99 11/11/23 12:59 Oxygen Delivery Method Room Air 11/11/23 12:59 BMI result Body Mass Index 24.7 Const General: comfortable and no acute distress Orientation/consciousness: patient oriented x3 Resp Effort & Inspection: normal respiratory effort Auscultation: clear to auscultation bilaterally, no crackles, no rales, no rhonchi and no wheezes Cardio Rate: regular rate Rhythm: regular rhythm Neuro General: patient oriented x3 Assessment & Plan Assessment & Plan (1) Cough in adult: Code(s): R05.9 - Cough, unspecified Plan: - Take medicine as prescribed - Warm fluids with honey Medications: New azithromycin 500 mg PO DAILY 3 days 3 tabs 0RF R05.9 - Cough, unspecified cetirizine (Zyrtec) 10 mg PO DAILY PRN 30 tabs 0RF allergy symptoms R05.9 - Cough, unspecified [id number] 5-10-100 mg/5 mL (Adult Tussin CF) 10 mL PO Q4H PRN 237 mL 0RF cold symptoms R05.9 - Cough, unspecified Coding Level of Care Code Est Pt Level 3 (67952) Diagnoses Cough in adult R05.9 Time Spent (min) 15
== END 2023-11-11 13:40 | disposition home or self-care (01) ==
PROVIDERS: PCP Internal Medicine; Visit Provider Nurse Practitioner Family
DX: R05.9 Cough, unspecified (principal)
CPT/HCPCS: 99213

== ENCOUNTER 2023-11-22 16:10 | Outpatient (AMB) | payer MEDICARE, MEDICAID, SELFPAY ==
[2023-11-22 16:11] VITALS: BP 112/74; PULSE 89; TEMP 36.6; O2SAT 96
--- NOTE | 2023-11-22 16:11 | AM.OFFWIN_ITS ---
Intake Vital Signs 11/22/23 16:11 Height 6 ft BP 112/74 Blood Pressure Location Rt brachial Position Sitting Pulse 89 Pulse Source Pulse Oximeter Temp 97.8 F Temp Source Oral Pulse Oximetry (%) 96 Intake Visit Reasons: EP RT knee bubble/hurts Intake Note: pt is here for right knee pain Patient Tobacco Use Status: Never used Tobacco Allergies No Known Allergies Allergy (Verified 11/22/23 16:11) Do you need a note to return to daycare/school/sports/work: No HPI HPI Comments History of Present Illness Details Patient is a 48-year-old female complaining of right sided knee pain with a bump. Her mother states she was outside mowing the lawn 2 days ago and it is unclear what happened but she likely twisted her knee and she came in the house crying. She states there is a lot of moles in her yd and have a lot of holes and her coordination isn't the best and this is probably the scenario. She states she has been using ice but she is unable to take ibuprofen right now because she is having her port removed in 7 days. She denies a history of bursitis. [facility] Medical History Ductal carcinoma in situ of left breast Degenerative disc disease Lead poisoning Dysarthria Surgical History History of lumpectomy of left breast H/O myringotomy Family History Paternal Grandfather History of lung cancer Maternal Grandfather History of lung cancer Maternal Uncle Heart attack Maternal Grandmother Heart attack Diabetes HTN (hypertension) Father COPD (chronic obstructive pulmonary disease) Parkinson disease Maternal Aunt Diabetes Paternal Grandmother Diabetes Paternal Aunt Diabetes Social History Household Members: Family Household Members Other:: mother Housing: House Are you a primary long term acute care registered nurse to a significant other at home: No Do you presently have visiting nurse or other home services: No Alcohol intake: never Patient Tobacco Use Status: Never used Tobacco e-Cigarette/Vaping Use: Never Used service: No Current occupational status: employed 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 Cognitive needs: Yes Hearing needs: No Vision needs: No Review of Systems Const All systems reviewed & are unremarkable except as noted in HPI and below Physical Exam Vital Signs: Last Vital Signs Temp 97.8 F 11/22/23 16:11 Pulse 89 11/22/23 16:11 BP 112/74 11/22/23 16:11 Pulse Ox 96 11/22/23 16:11 Const General: cooperative, healthy appearing, comfortable, no acute distress and well developed Limitations: no limitations HEENT Head: Yes normal to inspection Eyes General: appearance normal, both eyes and all related structures Neck Neck: Yes normal visual inspection and Yes full ROM Skin General skin exam: no rashes or lesions noted Extrem Right lower extremity: knee (Right side lateral knee) Details: tenderness, swelling, normal ROM and knee ligament exam normal; no abrasions, no lacerations, no ecchymosis, no crepitus, no deformity and no unusual warmth Assessment & Plan Assessment & Plan (1) Bursitis: Comment: Mom asked for a refill on the liquid ibuprofen but is aware she can not take this until her port is removed on November 28 Code(s): M71.9 - Bursopathy, unspecified Qualifiers: Bursitis location: knee Knee bursitis location: other knee bursa Laterality: right Qualified Code(s): M70.51 - Other bursitis of knee, right knee Plan: RICE, wrapped knee with an Jonathan bandage, sent refill as requested on liquid ibuprofen. Advised if no improvement to follow-up with primary care doctor. Plan See above Medications: Refilled ibuprofen take with food or milk as needed for pain 200 mg (10 mL) PO .3 times daily PRN 473 mL 3RF fever or pain Coding Level of Care Code Est Pt Level 3 (91849) Diagnoses Bursitis of other bursa of right knee M70.51 Bursitis location: knee Knee bursitis location: other knee bursa Laterality: right
== END 2023-11-22 17:00 | disposition home or self-care (01) ==
PROVIDERS: PCP Internal Medicine; Visit Provider Physician Assistant
DX: M70.51 Other bursitis of knee, right knee (principal)
CPT/HCPCS: 99213

== ENCOUNTER 2024-09-14 10:57 | Outpatient (AMB) | payer MEDICARE, MEDICAID, SELFPAY ==
--- NOTE | 2024-09-14 11:17 | AM.OFFWIN_ITS ---
Intake Vital Signs 09/14/24 11:18 Weight 189 lb BP 114/72 Blood Pressure Location Rt brachial Position Sitting Pulse 104 H Pulse Source Pulse Oximeter Temp 98.1 F Temp Source Oral Pulse Oximetry (%) 97 Oxygen Delivery Method Room Air Intake Visit Reasons: EP Congestion Intake Note: Patient here for congestion, slight cough which has been present for a couple of days and has missed several days of work. Patient Tobacco Use Status: Never used Tobacco Allergies No Known Allergies Allergy (Verified 09/14/24 11:19) Do you need a note to return to daycare/school/sports/work: Yes HPI HPI Comments History of Present Illness Details 49 y/o female patient who presents to [facility] walk in clinic with 3 day h/o URI symptoms. Reports nasal congestion, runny nose, headaches, chills and Fatigue. [facility] Medical History Ductal carcinoma in situ of left breast Degenerative disc disease Lead poisoning Dysarthria Surgical History History of lumpectomy of left breast H/O myringotomy Family History Paternal Grandfather History of lung cancer Maternal Grandfather History of lung cancer Maternal Uncle Heart attack Maternal Grandmother Heart attack Diabetes HTN (hypertension) Father COPD (chronic obstructive pulmonary disease) Parkinson disease Maternal Aunt Diabetes Paternal Grandmother Diabetes Paternal Aunt Diabetes Social History Household Members: Family Household Members Other:: mother Housing: House Are you a primary childcare provider to a significant other at home: No Do you presently have visiting nurse or other home services: No Alcohol intake: never Patient Tobacco Use Status: Never used Tobacco e-Cigarette/Vaping Use: Never Used service: No Current occupational status: employed 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 Cognitive needs: Yes Hearing needs: No Vision needs: No Review of Systems Const All systems reviewed & are unremarkable except as noted in HPI and below Physical Exam Vital Signs: Last Vital Signs Temp 98.1 F 09/14/24 11:18 Pulse 104 H 09/14/24 11:18 BP 114/72 09/14/24 11:18 Pulse Ox 97 09/14/24 11:18 Oxygen Delivery Method Room Air 09/14/24 11:18 Const General: no acute distress Orientation/consciousness: patient oriented x3 HEENT Head: Yes normocephalic Ears: external ears normal and TM abnormal obstructed by cerumen bilateral General nose exam: Nasal discharge present Face and sinus: Yes sinuses nontender Mouth: moist mucous membranes Throat: Yes uvula midline Resp Effort & Inspection: normal respiratory effort and able to speak in complete sentences Auscultation: clear to auscultation bilaterally, no crackles, no rales, no rhonchi and no wheezes Cardio Rhythm: regular rhythm Heart sounds: S1 normal heart sound present and S2 normal heart sound present Neuro General: patient oriented x3 Assessment & Plan Assessment & Plan (1) Upper respiratory tract infection: Code(s): J06.9 - Acute upper respiratory infection, unspecified Qualifiers: URI type: unspecified URI Qualified Code(s): J06.9 - Acute upper respiratory infection, unspecified Plan: Ordered SARs Acetaminophen for pain relief. Rest and hydrate well with warm fluids. OTC cold and flu remedies. Orders: Orders SARS-CoV2/FLU/RSV Today J06.9 - Acute upper respiratory infection, unspecified Coding Level of Care Code Est Pt Level 4 (13472) Diagnoses Upper respiratory tract infection, unspecified type J06.9 URI type: unspecified URI Time Spent (min) 20
[2024-09-14 11:18] VITALS: BP 114/72; PULSE 104; TEMP 36.7; O2SAT 97
== END 2024-09-14 12:01 | disposition home or self-care (01) ==
PROVIDERS: PCP Internal Medicine; Visit Provider Nurse Practitioner Family
DX: J06.9 Acute upper respiratory infection, unspecified (principal)

== ENCOUNTER 2024-09-14 10:57 | Outpatient (REF) | payer MEDICARE, MEDICAID, SELFPAY ==
[2024-09-14 14:21] LABS: Influenza A PCR NEGATIVE (Negative); Influenza B PCR NEGATIVE (Negative); Resp Syncy Virus RNA Qual PCR NEGATIVE (Negative); SARS COV2 PCR INHOUSE NEGATIVE (Negative)
== END 2024-09-14 10:58 | disposition home or self-care (01) ==
LOC: HO.LAB 10:57
PROVIDERS: Nurse Practitioner Family; PCP Internal Medicine
DX: J06.9 Acute upper respiratory infection, unspecified (principal)
CPT/HCPCS: 0241U; 99212

== ENCOUNTER 2024-10-06 09:51 | Outpatient (AMB) | payer MEDICARE, MEDICAID, SELFPAY ==
--- NOTE | 2024-10-06 09:56 | A.OFFPC_ITS ---
Vital Signs 10/06/24 09:57 Height 6 ft Weight 192 lb 6 oz BMI 26.1 BP 128/62 Blood Pressure Location Lt brachial Position Sitting Pulse 83 Pulse Source Pulse Oximeter Temp 98.3 F Temp Source Oral Pulse Oximetry (%) 96 Oxygen Delivery Method Room Air Intake Visit Reasons: Annual PE/Sec covers Accompanied by: Mother Allergies latex Allergy (Intermediate, Verified 10/06/24 10:00) Rash Medication List - Last Reconciled 10/06/24 by Kaila Diaz MD anastrozole 1 mg PO DAILY ascorbic acid (vitamin C) ER 1 cap PO DAILY cetirizine (Zyrtec) 10 mg PO DAILY PRN ibuprofen 200 mg (10 mL) PO .3 times daily PRN multivitamin 1 tab PO DAILY oxymetazoline 0.05% (Afrin (oxymetazoline)) 2 sprays intranasal Q12H PRN 3 days Tobacco use date assessed: 10/06/24 Dental Screening Dental Screen Date: 10/06/24 Did you have a dental visit in the last 12 months?: Yes Did you have a dental problem in the last 6 months where you did not have access to dental care?: No Was dental information given to patient?: Patient has dentist HPI Annual PE/Sec covers HPI Details History of Present Illness - The patient is a 49-year-old female wi th neurological impairment mentally disabled with severe stuttering came in with mother for a annual physical examination. - Reports experiencing back pain, curren tlpatrick under the care of Dr. Javier, with an MRI recently performed and awaiting results. - Notes that her mother has diabetes norma litus, which raises concern for her own glycemic control and prompts a request for glucose testing. - History of cancer, status post-duodene ctomy, currently receiving prophylactic IV treatments to prevent metastasis to bone, with the next scheduled treatment on October 13. - Recently visited an OBGYN due to abdom inal concerns; underwent an ultrasound, which was normal, concluding that symptoms may be related to weight and exercise. - No history of colonoscopy, expresses d ifficulty with the preparation, considering Cologuard as an alternative. Health Maintenance - Past year OBGYN visit for abdominal sc reening, resulting in normal findings. - Scheduled for cancer prophylaxis IV tr eatment on October 13 to prevent bone metastasis. - Cologuard ordered in lieu of colonosco py for colorectal cancer screening due to difficulty with traditional preparation methods. - Lab tests ordered including fasting gl ucose level evaluation due to family history of diabetes. Diagnostic results - Imaging: MRI of the back performed; re sults pending. - Screening: Abdominal ultrasound perfor med by OBGYN; normal findings reported. Patient Instructions - Undergo lab tests today, including blo od work, to assess glucose levels. - Await results of the MRI and follow up on Wednesday with Dr. Javier. - Complete the Cologuard test as instruc sofiya upon receipt of the kit. - Attend scheduled cancer prophylaxis tr eatment on October 13. Review of Systems - General: No fever no chills - Neurological: No headaches no dizzin ess - Ear nose throat: No sore throat no hearing difficulty no ear pain - Cardiovascular: No syncope, no chest pain, no palpitations - Gastrointestinal: No nausea vomiting or diarrhea - Endocrine: No polyuria polydipsia no heat intolerance - Genitourinary: No dysuria - Skin: No new complaints Physical Exam General: Cooperative, healthy appearing, comfortable, no acute distress Orientation: Patient oriented x3 Head: Normal to inspection Ears: Within normal limit visually Nose: Normal external nose present Face and sinus: Normal facial exam Eyes: Appearance normal, extraocular movement intact pupils reactive Neck: Normal visual inspection and supple Respiratory: Normal respiratory effort and able to speak in complete sentences. Clear to auscultation, no stridor Cardiovascular: S1 and S2 RRR Back: Tender over upper lumbar spine with palpation GI: Normal to inspection. Soft to palpation and nontender. Belly is benign, no pain. Skin: Turgor normal, no acute findings Neuro: Patient oriented x3, motor sensory intact, balance intact, tandem failed Extremities: Normal to inspection, no pain in shoulders [facility] Medical History Ductal carcinoma in situ of left breast Degenerative disc disease Lead poisoning Dysarthria Surgical History History of lumpectomy of left breast H/O myringotomy Family History Paternal Grandfather History of lung cancer Maternal Grandfather History of lung cancer Maternal Uncle Heart attack Maternal Grandmother Heart attack Diabetes HTN (hypertension) Father COPD (chronic obstructive pulmonary disease) Parkinson disease Maternal Aunt Diabetes Paternal Grandmother Diabetes Paternal Aunt Diabetes Social History Household Members: Family Household Members Other:: mother Housing: House Are you a primary caretaker to a significant other at home: No Do you presently have visiting nurse or other home services: No Alcohol intake: never Patient Tobacco Use Status: Never used Tobacco e-Cigarette/Vaping Use: Never Used service: No Current occupational status: employed 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 1. Little interest or pleasure in doing things: not at all 2. Feeling down, depressed, or hopeless: not at all 3. Trouble falling or staying asleep, or sleeping too much: not at all 4. Feeling tired or having little energy: not at all 5. Poor appetite or overeating: not at all 6. Feeling bad about yourself - or that you are a failure or have let yourself or your family down: not at all 7. Trouble concentrating on things, such as reading the newspaper or watching television: not at all 8. Moving or speaking so slowly that other people could have noticed. Or the opposite - being so fidgety or restless that you have been moving around a lot more than usual: not at all 9. Thoughts that you would be better off or of hurting yourself in some way: not at all Total score: 0 Depression Screening Interpretation: Negative Depression Screening Done: Yes 52384 - PHQ-9 Billing: Yes Source: Developed by Drs. Peter Vazquez, Anna Henry, Fan Reyes and colleagues, with an educational pb from [employer] Thrive Questionnaire Date Thrive assessed: 10/06/24 I am a: Patient What is your living situation today?: I have a steady place to live Within the past 12 months, did the food you bought not last and you didn't have the money to get more?: Never true Within the past 12 months, did you worry whether your food would run out before you got money to buy more?: Never true Do you have trouble paying for medicines?: No Do you have trouble getting transportation to medical appointments?: No Do you have trouble paying your heating and electricity bill?: No Do you have trouble taking care of your child, family member or friend?: No Do you have trouble with day-to-day activities such as bathing, preparing meals, shopping, managing finances, etc.?: No Are you currently unemployed and looking for a job?: No Are you interested in more education?: No THRIVE Score: 0 AUDIT C Alcohol Use Questionnaire (AUDIT-C) 1. How often do you have a drink containing alcohol?: Never 3. How often do you have six or more drinks on one occasion?: Never Total Score: 0 Score Reviewed/Action Taken: No CRISTY-7 AMB Questionnaire CRISTY-7 Date CRISTY - 7 assessed: 10/06/24 Feeling nervous, anxious, or on edge: 0 = Not at all Not being able to stop or control worryin = Not at all Worrying too much about different things: 0 = Not at all Trouble relaxin = Not at all Being so restless that it is hard to sit still: 0 = Not at all Becoming easily annoyed or irritable: 0 = Not at all Feeling afraid as if something awful might happen: 0 = Not at all Total CRISTY-7 score (0-4 normal; 5-9 mild; 10-14 moderate; 15-21 severe): 0 Source: Developed by Drs. Peter Vazquez, Anna Henry, Fan Reyes and colleagues, with an educational pb from [employer] CRISTY-7 Assessment Billing CRISTY-7 Assessment Tool: CRISTY-7 Assessment 47882 Physical exam (Primary Care) Vital Signs: Last Vital Signs Temp 98.3 F 10/06/24 09:57 Pulse 83 10/06/24 09:57 BP 128/62 10/06/24 09:57 Pulse Ox 96 10/06/24 09:57 Oxygen Delivery Method Room Air 10/06/24 09:57 BMI result Body Mass Index 26.1 Tobacco/Smoking Status: Tobacco use Status Tobacco use date assessed 10/06/24 10/06/24 10:02 Patient Tobacco Use Status Never used Tobacco 10/06/24 10:02 e-Cigarette/Vaping Use Never Used 10/06/24 10:02 PHQ-9: PHQ-9 Score PHQ-9: Total score 0 10/06/24 10:26 Depression Screening Interpretation: Negative Thrive Assessment: Date of Thrive Assessment Date Thrive assessed 10/06/24 10/06/24 10:02 Coding Level of Care Code Est Pt Level 3 (98830) Est Pt Prev Care 40-64y(39371) Diagnoses Encounter for general adult medical examination with abnormal findings Z00.01 Chronic midline low back pain without sciatica M54.50; G89.29 Back pain location: low back pain Back pain laterality: midline Sciatica presence: without sciatica Neurological impairment R29.818 Mentally disabled F79 History of breast cancer Z85.3 Additional Codes CRISTY-7 Assessment Billing - CRISTY-7 Assessment Tool: CRISTY-7 Assessment 39296 ([id number]) PHQ-9 - 32607 - PHQ-9 Billing: Yes ([id number]) Assessment & Plan Assessment & Plan (1) Encounter for general adult medical examination with abnormal findings: Code(s): Z00.01 - Encounter for general adult medical examination with abnormal findings Category: Medical (2) Chronic back pain: Code(s): M54.9 - Dorsalgia, unspecified; G89.29 - Other chronic pain Category: Medical Qualifiers: Back pain location: low back pain Back pain laterality: midline Sciatica presence: without sciatica Qualified Code(s): M54.50 - Low back pain, unspecified; G89.29 - Other chronic pain (3) Neurological impairment: Code(s): R29.818 - Other symptoms and signs involving the nervous system Category: Medical (4) Mentally disabled: Code(s): F79 - Unspecified intellectual disabilities Category: Medical (5) History of breast cancer: Code(s): Z85.3 - Personal history of malignant neoplasm of breast Category: Medical Plan History of Present Illness - The patient is a 49-year-old female with neurological impairment mentally disabled with severe stuttering came in with mother for a annual physical examination. - Reports experiencing back pain, currently under the care of Dr. Javier, with an MRI recently performed and awaiting results. - Notes that her mother has diabetes mellitus, which raises concern for her own glycemic control and prompts a request for glucose testing. - History of cancer, status post-duodenectomy, currently receiving prophylactic IV treatments to prevent metastasis to bone, with the next scheduled treatment on October 13. - Recently visited an OBGYN due to abdominal concerns; underwent an ultrasound, which was normal, concluding that symptoms may be related to weight and exercise. - No history of colonoscopy, expresses difficulty with the preparation, considering Cologuard as an alternative. Health Maintenance - Past year OBGYN visit for abdominal screening, resulting in normal findings. - Scheduled for cancer prophylaxis IV treatment on October 13 to prevent bone metastasis. - Cologuard ordered in lieu of colonoscopy for colorectal cancer screening due to difficulty with traditional preparation methods. - Lab tests ordered including fasting glucose level evaluation due to family history of diabetes. Diagnostic results - Imaging: MRI of the back performed; results pending. - Screening: Abdominal ultrasound performed by OBGYN; normal findings reported. Patient Instructions - Undergo lab tests today, including blood work, to assess glucose levels. - Await results of the MRI and follow up on Wednesday with Dr. Javier. - Complete the Cologuard test as instructed upon receipt of the kit. - Attend scheduled cancer prophylaxis treatment on October 13. Orders: Orders Comprehensive [place]. Panel Fast Today F79 - Unspecified intellectual disabilities, G89.29 - Other chronic pain, M54.9 - Dorsalgia, unspecified, R29.818 - Other symptoms and signs involving the nervous system, Z00.01 - Encounter for general adult medical examination with abnormal findings, Z85.3 - Personal history of malignant neoplasm of breast TSH reflex Free T4 Today F79 - Unspecified intellectual disabilities, G89.29 - Other chronic pain, M54.9 - Dorsalgia, unspecified, R29.818 - Other symptoms and signs involving the nervous system, Z00.01 - Encounter for general adult medical examination with abnormal findings, Z85.3 - Personal history of malignant neoplasm of breast Hemoglobin A1c Today F79 - Unspecified intellectual disabilities, G89.29 - Other chronic pain, M54.9 - Dorsalgia, unspecified, R29.818 - Other symptoms and signs involving the nervous system, Z00.01 - Encounter for general adult medical examination with abnormal findings, Z85.3 - Personal history of malignant neoplasm of breast Complete Blood Count Auto Diff Today F79 - Unspecified intellectual disabilities, G89.29 - Other chronic pain, M54.9 - Dorsalgia, unspecified, R29.818 - Other symptoms and signs involving the nervous system, Z00.01 - Encounter for general adult medical examination with abnormal findings, Z85.3 - Personal history of malignant neoplasm of breast Lipid Panel Today F79 - Unspecified intellectual disabilities, G89.29 - Other chronic pain, M54.9 - Dorsalgia, unspecified, R29.818 - Other symptoms and signs involving the nervous system, Z00.01 - Encounter for general adult medical examination with abnormal findings, Z85.3 - Personal history of malignant neoplasm of breast Vitamin D 25-OH (D2 and D3) Today F79 - Unspecified intellectual disabilities, G89.29 - Other chronic pain, M54.9 - Dorsalgia, unspecified, R29.818 - Other symptoms and signs involving the nervous system, Z00.01 - Encounter for general adult medical examination with abnormal findings, Z85.3 - Personal history of malignant neoplasm of breast Referrals Cologuard Test Z12.11 - Encounter for screening for malignant neoplasm of colon, Z12.12 - Encounter for screening for malignant neoplasm of rectum
[2024-10-06 09:57] VITALS: BP 128/62; PULSE 83; TEMP 36.8; O2SAT 96; BMI 26.1
== END 2024-10-06 10:30 | disposition home or self-care (01) ==
LOC: HO.HMCC 09:52
PROVIDERS: PCP Internal Medicine; Visit Provider Internal Medicine
DX: Z00.00 Encounter for general adult medical examination without abnormal findings (principal); M54.50 Low back pain, unspecified; G89.29 Other chronic pain; R29.818 Other symptoms and signs involving the nervous system; F79 Unspecified intellectual disabilities; Z85.3 Personal history of malignant neoplasm of breast

== ENCOUNTER 2024-10-06 09:51 | Outpatient (REF) | payer MEDICARE, MEDICAID, SELFPAY ==
[2024-10-06 13:27] LABS: MANUAL DIFF FLAG NO
[2024-10-06 13:35] LABS: Basophils Absolute Auto 0.1 X10*3/uL (0.0-0.2); Basophils Percent Auto 1.1 % (0-2); Eosinophils Absolute Auto 0.2 X10*3/uL (0.0-0.4); Hematocrit 40.7 % (37.0-47.0); Hemoglobin 13.4 g/dl (12.0-16.0); Imm Gran Abs Auto 0.02 X10*3/uL (0.00-0.03); Imm Gran Pct Auto 0.4 % (0.0-0.4); Lymphocytes Absolute Auto 1.4 X10*3/uL (1.2-4.9); Lymphocytes Percent Auto 29.9 % (20-40); Mean Corpuscular HGB Conc 32.9 g/dl (31.0-35.0); Mean Corpuscular Hemoglobin 28.5 pg (27.0-33.0); Mean Corpuscular Volume 86.6 fL (80.0-98.0); Mean Platelet Volume 10.6 fL (9.4-12.3); Monocytes Absolute Auto 0.4 X10*3/uL (0.1-1.2); Monocytes Percent Auto 9.1 % (2-11); Neutrophils Absolute Auto 2.6 x10*3/uL (2.0-8.3); Neutrophils Percent Auto 55.5 % (45-73); Platelet Count 192 X10*3/uL (160-400); Red Cell Distribution Width 13.2 % (11.0-16.0); White Blood Count 4.8 X10*3/uL (4.8-10.8)
[2024-10-06 13:46] LABS: Estimated Average Glucose 103 mg/dL; Hemoglobin A1C 119.3747 umol/L; Hemoglobin A1c % 5.2 % (<6.0); Total Hemoglobin (HGBA1C) 3571.1537 umol/L
[2024-10-06 14:05] LABS: Alanine Aminotransferase 17 U/L (0-31); Albumin Level 4.4 g/dL (3.5-5.0); Alkaline Phosphatase 150 U/L (39-117); Anion Gap 9 (12-20); Aspartate Amino Transferase 34 U/L (5-31); Bilirubin Total 0.8 mg/dL (0.0-1.0); Blood Urea Nitrogen 15 mg/dL (9-16); Calcium 9.9 mg/dL (8.4-10.2); Carbon Dioxide 30 mmol/L (22-29); Chloride 104 mmol/L (96-108); Cholesterol 176 mg/dL (<200); Estimated Glomerular Filt Rate > 60; Glucose Fasting 91 mg/dL (60-99); HDL Cholesterol 57 mg/dL (>40); LDL Cholesterol Calculated 105 mg/dL (<100); Potassium 4.5 mmol/L (3.3-5.1); Sodium 138 mmol/L (135-145); Triglycerides 72 mg/dL (<150)
[2024-10-06 14:22] LABS: TSH reflex Free T4 3.93 uIU/mL (0.32-4.0)
[2024-10-11 12:14] LABS: Vitamin D 25-OH, D2 <4 ng/mL; Vitamin D 25-OH, D3 26 ng/mL; Vitamin D 25-OH, Total 26 ng/mL (30-100)
== END 2024-10-06 09:52 | disposition home or self-care (01) ==
LOC: HO.HMGCLDS 09:51
PROVIDERS: PCP Internal Medicine; Visit Provider Internal Medicine
DX: Z00.01 Encounter for general adult medical examination with abnormal findings (principal); G89.29 Other chronic pain; M54.50 Low back pain, unspecified; R29.818 Other symptoms and signs involving the nervous system; F79 Unspecified intellectual disabilities; Z85.3 Personal history of malignant neoplasm of breast; Z13.1 Encounter for screening for diabetes mellitus
CPT/HCPCS: 36415; 80053; 80061; 82306; 83036; 84443; 85025; 96127; 99396

== ENCOUNTER 2025-01-26 13:28 | Outpatient (AMB) | payer MEDICARE, MEDICAID, SELFPAY ==
--- OUTSIDE RECORDS SUMMARY | 2025-01-21 23:59 | XMS_ITS | Continuity of Care Document ---
Author Organization [facility] Address [address] [place] [address]- Care Team Providers Care Tree Chipper Name Role Phone Joe [facility]AM[facility], [facility] Encounter [facility] [place] Date(s): 12/22/24 - 01/21/[address] [address] Attending Physician: Denise Sheppard Admitting Physician: Denise Sheppard Referring Physician: AdmtrDenise Encounter Type: Triage Allergies, Adverse Reactions, Alerts Substance Criticality Severity Reaction Reaction Severity Status Contrast Dye Unable to assess criticality Persistent Severe Active Silicone Barrier (simethicone) obsolete 1 Active 1Silicone tubing with drains causes dramatic irritation Immunizations Given and Recorded Vaccine Date Status Refusal Reason pneumococcal 23-valent vaccine 10/22/22 Given pneumococcal 15-valent conjugate vaccine 08/19/22 Given influenza virus vaccine, inactivated 1 08/19/22 Gi ruby 1Early/Late Reason: Early/Late Reason: Wean to Standard Admin Times Medications colestipol 1 gm oral tablet 2 tablet, By Mouth, 2 times a day, WITH A FULL GLASS OF WATER., # 360 tablet, 0 Refills, Maintenance, 10/31/24 12:58:00 PM EDT Start Date: 10/31/24 Status: Ordered Quantity: 360.0 Unit: tablet Repeat number: 1 Mastectomy Bra See Instructions, # 3 each, Maintenance, DX: Breast cancer S/P bilateral mastectomies, 10/27/24 11:57:00 AM EDT, Supply Start Date: 10/27/24 Status: Ordered Quantity: 3.0 Unit: each Repeat number: 1 Problem List Condition Confirmation Course Effective Dates Status Health St atus Informant Back pain Confirmed Active Breast cancer Confirmed Active Social History Social History Type Response Smoking Status Never (less than 100 in lifetime) entered on: 07/13/22 Sex Sex Representation Female (finding) Patient Care team information Care Team Personnel Name: Kaila Diaz MD Position: Reference Physician Member Role: PCP Address: [address] Telecom: Name: Angela Howell RN Position: S Onco RN Member Role: Primary Care Nurse Name: Avinash Tyler RN Position: S Onco RN Member Role: Primary Care Nurse Name: Alexandra Forbes RN Position: S Onco RN Member Role: Primary Care Nurse Name: Mayra Espino RN Position: S Onco RN Member Role: Primary Care Nurse Name: Stepan Wright RN Position: S RN Member Role: Primary Care Nurse Care Team Related Persons Name: YANCI NICOLE Name: ELLY MENDOZA Insurance Providers Guarantor name: KERVIN MENDOZA Health Plan Information #: 1 Payer: MEDICARE B Payer Identifier: Member Number: [id number] Group Number: Subscriber Identifier: [id number] Relationship to Subscriber: self Coverage Type: NA Coverage Verification Date: NA Telecom: NA Address: Health Plan Information #: 2 Payer: [email or web address] Payer Identifier: Member Number: [id number] Group Number: Subscriber Identifier: [id number] Relationship to Subscriber: self Coverage Type: MEDICAID Coverage Verification Date: Telecom: Address:
--- OUTSIDE RECORDS SUMMARY | 2025-01-25 08:16 | XMS_ITS | Continuity of Care Document ---
Author Organization [facility] ion Address [address] [place] [id number]- Care Team Providers Care Motorcyles Final Inspector Name Role Phone Joe LAMBERT, Asma Primary Care Physician Encounter [facility] [place] Date(s): 11/29/24 - 01/25/[address] [address] Encounter Diagnosis Lymphedema, not elsewhere classified(Final) - Discharge Disposition: A-D/C Home Attending Physician: Facundo Nelson DO Admitting Physician: Facundo Nelson DO Referring Physician: Facundo Nelson DO Encounter Type: Disch Recurring OP Allergies, Adverse Reactions, Alerts Substance Criticality Severity [...] Reference Physician Member Role: PCP Address: [address] [place], [place] [address] Telecom: Name: Angela Howell RN Position: S [...] Payer: MEDICARE B Payer Identifier: Member Number: [id number] Group Number: Subscriber Identifier: [id number] Relationship to Subscriber: self Coverage Type: NA Coverage Verification Date: NA Telecom: Address: Health Plan Information #: 2 Payer: [employer] Payer Identifier: Member Number: [id number] Group Number: Subscriber Identifier: [id number] Relationship to Subscriber: self Coverage Type: MEDICAID Coverage Verification Date: NA Telecom: Address:
[2025-01-26 13:29] VITALS: BP 108/72; PULSE 86; O2SAT 98; BMI 26.6
--- NOTE | 2025-01-26 13:29 | A.OFFPC_ITS ---
Vital Signs 01/26/25 13:29 Height 6 ft Weight 196 lb 6 oz BMI 26.6 BP 108/72 Blood Pressure Location Lt brachial Position Sitting Pulse 86 Pulse Source Pulse Oximeter Pulse Oximetry (%) 98 Oxygen Delivery Method Room Air Intake Visit Reasons: talk about weight loss medication Allergies latex Allergy (Intermediate, Verified 10/06/24 10:00) Rash Medication List - Last Reconciled 01/26/25 by Kaila Diaz MD anastrozole 1 mg PO DAILY ibuprofen 200 mg (10 mL) PO .3 times daily PRN Tobacco use date assessed: 10/06/24 Dental Screening Dental Screen Date: 10/06/24 HPI talk about weight loss medication HPI Details Chief Complaint Progressive abdominal weight gain and associated back pain. History of Present Illness The patient is a 49-year-old female presenting with progressive abdominal weight gain and back pain. Mother is requesting semaglutide injections for the patient, patient is mentally disabled Abdominal weight gain: - The patient reports an increase in vinod ght localized primarily to the abdomen, resembling a distended abdomen. - The condition has been ongoing, with a noted increase in weight despite efforts to control it. - The patient's BMI is 26.6, indicating an overweight status. - Previous gynecological evaluations rul ed out tumors, and pelvic ultrasound was conducted last year with no findings. Through OBGYN Back pain: -continued to have chronic back pain off and on Medical History: - History of back pain, requiring cortis one injections. - History of mentally disabled - Previous unremarkable pelvic ultrasoun d. Social History: - Engages in minimal physical exercise, mainly walking at the mall or around the neighborhood. - Diet includes fruits; recent consumpti on noted of plums. - An awareness of weight management due to upcoming social events. Diagnostic Results: - Last year gynecological pelvic ultraso und: Unremarkable. - Cologuard test: Negative results were communicated to the patient. Problem List - Overweight (BMI 26.6) - Localized abdominal weight gain - Chronic back pain - on physical exam today patient is tend er over left lower quadrant with palpation Patient Instructions - Begin prescribed antibiotics for possi ble intestinal inflammation. Diverticulitis - Schedule an abdominal ultrasound withi n 10 days to investigate abdominal symptoms. - Monitor back pain, seek emergency care if worsens.. - Take 2 mg of melatonin for sleep distu rbances as needed. - BMI is 26.6, explained to patient that patient's weight does not even fall into obesity I would recommend against the injections, she is tender over left lower quadrant for that I have prescribed Levaquin and Flagyl for 7 days We will do ultrasound of abdomen in 10 days And then she should come back for follow-up appointment Review of Systems - General: No fever no chills - Neurological: No headaches no dizziness - Ear nose throat: No sore throat no hearing difficulty no ear pain - Cardiovascular: No syncope, no chest pain, no palpitations - Gastrointestinal: No nausea vomiting or diarrhea Physical Exam General: No acute distress HEENT: No acute findings Neck: Supple Respiratory system: Clear to auscultation Cardiovascular: S1-S2 regular in rate and rhythm Gastrointestinal: Tender over left lower quadrant, bowel sounds positive Extremities: No new findings Skin: Normal turgor PFSH Medical History Ductal carcinoma in situ of left breast Degenerative disc disease Lead poisoning Dysarthria Surgical History History of lumpectomy of left breast H/O myringotomy Family History Paternal Grandfather History of lung cancer Maternal Grandfather History of lung cancer Maternal Uncle Heart attack Maternal Grandmother Heart attack Diabetes HTN (hypertension) Father COPD (chronic obstructive pulmonary disease) Parkinson disease Maternal Aunt Diabetes Paternal Grandmother Diabetes Paternal Aunt Diabetes Social History Household Members: Family Household Members Other:: mother Housing: House Are you a primary pet care assistant to a significant other at home: No Do you presently have visiting nurse or other home services: No Alcohol intake: never Patient Tobacco Use Status: Never used Tobacco e-Cigarette/Vaping Use: Never Used service: No Current occupational status: employed 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 Peter Vazquez, Anna Henry, Fan Reyes and colleagues, with an educational pb from [employer]. Physical exam (Primary Care) Vital Signs: Last Vital Signs Pulse 86 01/26/25 13:29 BP 108/72 01/26/25 13:29 Pulse Ox 98 01/26/25 13:29 Oxygen Delivery Method Room Air 01/26/25 13:29 BMI result Body Mass Index 26.6 Tobacco/Smoking Status: Tobacco use Status Tobacco use date assessed 10/06/24 01/26/25 13:32 Patient Tobacco Use Status Never used Tobacco 01/26/25 13:32 e-Cigarette/Vaping Use Never Used 01/26/25 13:32 Thrive Assessment: Date of Thrive Assessment Date Thrive assessed 10/06/24 01/26/25 13:32 Coding Level of Care Code Est Pt Level 5 (06130) Diagnoses Abdominal pain, left lower quadrant R10.32 Abdominal obesity E65 Time Spent (min) 40 Comment Review of chart/previous labs/previous imaging/[id number]-ducn with mother and patient/coordi Assessment & Plan Assessment & Plan (1) Abdominal pain, left lower quadrant: Code(s): R10.32 - Left lower quadrant pain Category: Medical (2) Abdominal obesity: Code(s): E65 - Localized adiposity Category: Medical Plan Chief Complaint Progressive abdominal weight gain and associated back pain. History of Present Illness The patient is a 49-year-old female presenting with progressive abdominal weight gain and back pain. Mother is requesting semaglutide injections for the patient, patient is mentally disabled Abdominal weight gain: - The patient reports an increase in weight localized primarily to the abdomen, resembling a distended abdomen. - The condition has been ongoing, with a noted increase in weight despite efforts to control it. - The patient's BMI is 26.6, indicating an overweight status. - Previous gynecological evaluations ruled out tumors, and pelvic ultrasound was conducted last year with no findings. Through OBGYN Back pain: -continued to have chronic back pain off and on Medical History: - History of back pain, requiring cortisone injections. - History of mentally disabled - Previous unremarkable pelvic ultrasound. Social History: - Engages in minimal physical exercise, mainly walking at the mall or around the neighborhood. - Diet includes fruits; recent consumption noted of plums. - An awareness of weight management due to upcoming social events. Diagnostic Results: - Last year gynecological pelvic ultrasound: Unremarkable. - Cologuard test: Negative results were communicated to the patient. Problem List - Overweight (BMI 26.6) - Localized abdominal weight gain - Chronic back pain - on physical exam today patient is tender over left lower quadrant with palpation Patient Instructions - Begin prescribed antibiotics for possible intestinal inflammation. Diverticulitis - Schedule an abdominal ultrasound within 10 days to investigate abdominal symptoms. - Monitor back pain, seek emergency care if worsens.. - Take 2 mg of melatonin for sleep disturbances as needed. - BMI is 26.6, explained to patient that patient's weight does not even fall into obesity, showed them grafts and explained what BMI means I would recommend against the injections, she is tender over left lower quadrant for that I have prescribed Levaquin and Flagyl for 7 days We will do ultrasound of abdomen in 10 days And then she should come back for follow-up appointment Orders: Orders US abdomen complete Today E65 - Localized adiposity, R10.32 - Left lower quadrant pain Medications: New metronidazole 500 mg PO Q8H 21 tabs 0RF 7 days levofloxacin 500 mg (20 mL) PO DAILY 140 mL 0RF 7 days
== END 2025-01-26 15:58 | disposition home or self-care (01) ==
LOC: HO.HMCC 13:28
PROVIDERS: PCP Internal Medicine; Visit Provider Internal Medicine
DX: R10.32 Left lower quadrant pain (principal); E65 Localized adiposity

== ENCOUNTER → 2025-01-26 13:28 | Outpatient (BNVA) | payer MEDICARE, MEDICAID, SELFPAY | PROVIDERS: PCP Internal Medicine; Visit Provider Internal Medicine | DX: R10.32 Left lower quadrant pain (principal); E65 Localized adiposity | CPT/HCPCS: 99212 ==

== ENCOUNTER 2025-03-16 09:51 | Outpatient (REF) | payer MEDICARE, MEDICAID, SELFPAY ==
--- NOTE | ~2025-03-16 | US_ITS ---
CLINICAL HISTORY: R10.32 - Left lower quadrant pain --- Additional Notes or Special Instructions: Book in 2 weeks US abdomen complete Comparison: None provided Findings: The visualized pancreas is normal. The aorta and inferior vena cava are normal caliber. The liver is normal in size and echotexture. There is no intrahepatic bile duct dilatation. The common duct is 3 mm in diameter. The gallbladder is normal. There is no sonographic Jackson sign. The main portal vein is antegrade. The right kidney is 10.4 cm in length. The left kidney is 11.6 cm in length. The spleen is normal. No ascites. IMPRESSION: 1. Normal complete abdominal ultrasound. This document has been electronically signed by: Lyly Lynn MD on 03/17/2025 09:24:27
== END 2025-03-16 09:52 | disposition home or self-care (01) ==
LOC: HO.HMGCX 09:51
PROVIDERS: PCP Internal Medicine; Visit Provider Internal Medicine
DX: R10.32 Left lower quadrant pain (principal); E65 Localized adiposity
CPT/HCPCS: 76700

== ENCOUNTER → 2025-03-16 09:57 | Outpatient (BNV) | payer MEDICARE, MEDICAID, SELFPAY | PROVIDERS: PCP Internal Medicine; Visit Provider Radiology Diagnostic Radiology | DX: R10.32 Left lower quadrant pain (principal) | CPT/HCPCS: 76700 ==